=== PATIENT | female | born 1990 | race Caucasian/White ===

== ENCOUNTER 2022-06-21 13:13 | Emergency (ER) | payer BC, OTHER ==
[~2022-06-21] VITALS: Ht 167.7 cm; Wt 65.7 kg
[2022-06-21 13:49] LABS: BILIRUBIN,URINE NEGATIVE (NEGATIVE); CLARITY,URINE SL CLOUDY; COLOR,URINE YELLOW; GLUCOSE, URINE (UA) NEGATIVE (NEGATIVE); KETONES,URINE NEGATIVE (NEGATIVE); LEUKOCYTE ESTERASE ,URINE NEGATIVE (NEGATIVE); NITRITE,URINE NEGATIVE (NEGATIVE); PROTEIN,URINE NEGATIVE (NEGATIVE)
[2022-06-21 13:55] LABS: BACTERIA,URINE TRACE /HPF; WBC,URINE 0-2 /HPF
[2022-06-21] MEDS ORDERED: NS IV 1000 ML 1,000 ML IV SCH (14:00)
--- NOTE | 2022-06-21 14:00 | ED Abdominal Pain ---
General Chief Complaint: General Problems/Pain Stated Complaint: NAUSEA | VOMITING | BACK AND ABD PAIN Nursing Triage Note: pt amb to rm 7 with complaints of N/V, not able to urinate, back and stomach pain since yesterday. pt denises taking pain meds. Source of Information: Patient Exam Limitations: No Limitations History of Present Illness Date Seen by Provider: Jun 21, 2022 Time Seen by Provider: 13:19 Initial Comments 32-year-old female presents today with complaints of generalized abdominal pain. Patient reports episode of nausea and vomiting yesterday, denies any nausea/vomiting today. Reports an episode of dark urine yesterday. Patient also complains of bilateral lower back pain. Patient reports last bowel movement was yesterday and was normal. Patient denies fever, diarrhea, dysuria. Reports feeling the chills yesterday. Patient states she was seen in the clinic and was tested for flu and COVID which were negative. They also ran a urine sample which she said was normal. Patient's mother is concerned for rhabdomyolysis, patient denies any generalized muscle pain. Reports urine appeared normal color today. Timing/Duration: 1 Day Location: Flank, Generalized Abdomen Associated Symptoms: Nausea/Vomiting, Other (chills yesterday, denies fevers) Allergies and Home Medications Allergies Coded Allergies: meperidine (Verified Allergy, Unknown, hives, 06/21/22) Patient Home Medication List Home Medication List Reviewed: Yes Review of Systems Review of Systems Constitutional: chills; No fever Respiratory: No Symptoms Reported Cardiovascular: No Symptoms Reported Gastrointestinal: Abdominal Pain, Nausea, Vomiting Genitourinary: Denies Burning; Other (dark urine) Musculoskeletal: no symptoms reported Past Fyimbew-Bhmnql-Kqseak Hx Patient Social History Tobacco Use?: No Substance use?: No Alcohol Use?: No Immunizations Up To Date Influenza Vaccine Up-to-Date: Yes; Up-to-Date Physical Exam Vital Signs Vital Signs - First Documented 06/21/22 13:24 Temp 36.3 Pulse 91 B/P (MAP) 112/80 (91) Pulse Ox 100 O2 Delivery Room Air Capillary Refill : Height/Weight/BMI Height: '" Weight: lbs. oz. kg; 23.00 BMI Method: General Appearance: WD/WN, no apparent distress Neck: supple, normal inspection Respiratory: chest non-tender, lungs clear, normal breath sounds, no respiratory distress, no accessory muscle use Cardiovascular: regular rate, rhythm, no edema, no gallop, no JVD, no murmur Peripheral Pulses: 0 Carotid (R), 0 Carotid (L), 0 Femoral (R), 0 Femoral (L), 0 Dorsalis Pedis (R), 0 Left Dors-Pedis (L), 0 Radial Pulses (R), 0 Radial Pulses (L) Gastrointestinal: normal bowel sounds, soft, no organomegaly, no pulsatile mass, tenderness Extremities: normal range of motion, normal inspection Back: normal inspection, no CVA tenderness, no vertebral tenderness Neurologic/Psychiatric: alert, normal mood/affect, oriented x 3 Skin: normal color, warm/dry Progress/Results/Core Measures Results/Orders Lab Results Laboratory Tests Test 06/21/22 13:46 06/21/22 14:03 Range/Units Urine Color YELLOW Urine Clarity SL CLOUDY Urine pH 6.0 5-9 Urine Specific Buckley 1.010 L 1.016-1.022 Urine Protein NEGATIVE NEGATIVE Urine Glucose (UA) NEGATIVE NEGATIVE Urine Ketones NEGATIVE NEGATIVE Urine Nitrite NEGATIVE NEGATIVE Urine Bilirubin NEGATIVE NEGATIVE Urine Urobilinogen 0.2 < = 1.0 MG/DL Urine Leukocyte Esterase NEGATIVE NEGATIVE Urine RBC (Auto) NEGATIVE NEGATIVE Urine RBC NONE /HPF Urine WBC 0-2 /HPF Urine Squamous Epithelial Cells 2-5 /HPF Urine Crystals NONE /LPF Urine Bacteria TRACE /HPF Urine Casts NONE /LPF Urine Mucus NEGATIVE /LPF Urine Culture Indicated NO White Blood Count 5.9 4.3-11.0 10^3/uL Red Blood Count 4.77 3.80-5.11 10^6/uL Hemoglobin 14.5 11.5-16.0 g/dL Hematocrit 43 35-52 % Mean Corpuscular Volume 90 80-99 fL Mean Corpuscular Hemoglobin 30 25-34 pg Mean Corpuscular Hemoglobin Concent 34 32-36 g/dL Red Cell Distribution Width 12.0 10.0-14.5 % Platelet Count 234 130-400 10^3/uL Mean Platelet Volume 10.6 9.0-12.2 fL Immature Granulocyte % (Auto) 0 % Neutrophils (%) (Auto) 73 42-75 % Lymphocytes (%) (Auto) 14 12-44 % Monocytes (%) (Auto) 11 0-12 % Eosinophils (%) (Auto) 2 0-10 % Basophils (%) (Auto) 0 0-10 % Neutrophils # (Auto) 4.3 1.8-7.8 10^3/uL Lymphocytes # (Auto) 0.8 L 1.0-4.0 10^3/uL Monocytes # (Auto) 0.7 0.0-1.0 10^3/uL Eosinophils # (Auto) 0.1 0.0-0.3 10^3/uL Basophils # (Auto) 0.0 0.0-0.1 10^3/uL Immature Granulocyte # (Auto) 0.0 0.0-0.1 10^3/uL Sodium Level 139 135-145 MMOL/L Potassium Level 3.5 L 3.6-5.0 MMOL/L Chloride Level 104 98-107 MMOL/L Carbon Dioxide Level 26 21-32 MMOL/L Anion Gap 9 5-14 MMOL/L Blood Urea Nitrogen 14 7-18 MG/DL Creatinine 1.03 0.60-1.30 MG/DL Estimat Glomerular Filtration Rate 74 BUN/Creatinine Ratio 14 Glucose Level 99 70-105 MG/DL Calcium Level 8.8 8.5-10.1 MG/DL Corrected Calcium 8.9 8.5-10.1 MG/DL Total Bilirubin 0.3 0.1-1.0 MG/DL Aspartate Amino Transf (AST/SGOT) 24 5-34 U/L Alanine Aminotransferase (ALT/SGPT) 34 0-55 U/L Alkaline Phosphatase 40 40-136 U/L Total Creatine Kinase 46 29-168 U/L Total Protein 6.5 6.4-8.2 GM/DL Albumin 3.9 3.2-4.5 GM/DL Lipase 19 8-78 U/L My Orders Orders - JEANE GRAYSON APRN Ua Culture If Indicated (06/21/22 13:18) Urine Bedside (06/21/22 13:18) Ed Iv/Invasive Line Start (06/21/22 13:55) Comprehensive Metabolic Panel (06/21/22 13:55) Lipase (06/21/22 13:55) Cbc With Automated Diff (06/21/22 13:55) Creatine Kinase (06/21/22 13:57) Ed Iv/Invasive Line Start (06/21/22 13:58) Ns Iv 1000 Ml (Sodium Chloride 0.9%) (06/21/22 14:00) Vital Signs/I&O 06/21/22 06/21/22 13:24 14:58 Temp 36.3 Pulse 91 70 B/P (MAP) 112/80 (91) 117/77 Pulse Ox 100 O2 Delivery Room Air Blood Pressure Mean: 91 Progress Progress Note #1: Time: 14:00 Progress Note Patient seen and evaluated. Abdominal pain work-up initiated. Mother concern for rhabdomyolysis. CK ordered Progress Note #2: Time: 14:46 Progress Note Lab results discussed with patient and mother. Discussed follow-up with patient. Discussed return precautions. Informed patient of small amount of bacteria in urine and to monitor for urinary tract infection symptoms and return or see primary care provider if symptoms occur. Departure Impression Primary Impression: Abdominal pain Disposition: 01 HOME, SELF-CARE Condition: Stable Departure-Patient Inst. Decision time for Depature: 14:47 Referrals: NO,LOCAL PHYSICIAN (PCP/Family) Primary Care Physician Patient Instructions: Abdominal Pain, Adult ED Add. Discharge Instructions: No acute findings on lab work today. Follow up with primary care provider. Return for any new or concerning symptoms, uncontrolled vomiting, severe abdominal pain, dark colored urine with generalized body aches. Monitor for symptoms of UTI and follow-up with primary care provider if symptoms occur. All discharge instructions reviewed with patient and/or family. Voiced understanding. JEANE GRAYSON APRN Jun 21, 2022 14:00
[2022-06-21 14:11] LABS: BASOPHILS % (AUTO) 0 % (0-10); EOSINOPHILS # (AUTO) 0.1 10^3/uL (0.0-0.3); EOSINOPHILS % (AUTO) 2 % (0-10); HEMATOCRIT 43 % (35-52); HEMOGLOBIN 14.5 g/dL (11.5-16.0); LYMPHOCYTES # (AUTO) 0.8 10^3/uL (1.0-4.0); LYMPHOCYTES % (AUTO) 14 % (12-44); MEAN CORPUSCULAR HEMOGLOBIN 30 pg (25-34); MEAN CORPUSCULAR HGB CONC 34 g/dL (32-36); MEAN CORPUSCULAR VOLUME 90 fL (80-99); MEAN PLATELET VOLUME 10.6 fL (9.0-12.2); MONOCYTES # (AUTO) 0.7 10^3/uL (0.0-1.0); MONOCYTES % (AUTO) 11 % (0-12); NEUTROPHILS # (AUTO) 4.3 10^3/uL (1.8-7.8); NEUTROPHILS % (AUTO) 73 % (42-75); PLATELET COUNT 234 10^3/uL (130-400); WHITE BLOOD COUNT 5.9 10^3/uL (4.3-11.0)
[2022-06-21 14:32] LABS: ALBUMIN 3.9 GM/DL (3.2-4.5); POTASSIUM 3.5 MMOL/L (3.6-5.0)
[2022-06-21 14:33] LABS: CALCIUM 8.8 MG/DL (8.5-10.1)
[2022-06-21 14:34] LABS: TOTAL PROTEIN 6.5 GM/DL (6.4-8.2)
[2022-06-21 14:36] LABS: BILIRUBIN,TOTAL 0.3 MG/DL (0.1-1.0)
[2022-06-21 14:38] LABS: CREATININE SERUM 1.03 MG/DL (0.60-1.30)
[2022-06-21 14:58] VITALS: BP 117/77
== END 2022-06-21 14:58 | disposition home or self-care (01) ==
LOC: EDUNIT# 13:13 → ER 13:17
DX: R10.84 Generalized abdominal pain (principal); R82.71 Bacteriuria
CPT/HCPCS: 36415; 80053; 81000; 82550; 83690; 84703; 85025; 99282